=== PATIENT | male | born 1970 | race Caucasian/White ===

== ENCOUNTER 2021-01-01 15:09 | Inpatient (IN) | payer OTHER ==
--- NOTE | 2021-01-01 15:16 | ED ---
Chest Pain HPI - General Stated Complaint: Chest Pain Time Seen by Provider: 01/01/21 15:14 - History of Present Illness Initial Comments: Jay is a 50-year-old male who is brought to the ER today as a transfer from outside facility. Patient is a history of drug abuse, poorly controlled hypertension, he is currently incarcerated it has been so for the preps 3 months. Patient reports the last thing he had extensive stream chest pain, today he's been experiencing some dull achiness in his chest. Patient has frequent chest pain and is evaluated outside hospital frequently. Upon his evaluated today it was noted that he had new T-wave inversions which were not present on his EKG 1 month ago and decision was made to transfer him to our facility for evaluation by cardiology. Upon arrival patient reports he still has dull pressure in his chest but no sharp pains acute experiencing last night. Reports she's been taking his describe medications not certain what he stating that that is given to him in the half-way. Patient denies any illicit drug use since being jailed. - Related Data Home Medications Medication Instructions Recorded Confirmed Acetaminophen [Tylenol] 1,000 mg PO BID PRN 01/01/21 01/01/21 Albuterol Sulfate [Proair Hfa] 1 puff INHALATION RT-QID PRN 01/01/21 01/01/21 Amitriptyline HCl [Elavil] 50 mg PO HS 01/01/21 01/01/21 Cyclobenzaprine [Flexeril] 10 mg PO BID PRN 01/01/21 01/01/21 Ibuprofen [Motrin] 800 mg PO Q8H PRN 01/01/21 01/01/21 Loratadine 10 mg PO DAILY PRN 01/01/21 01/01/21 Losartan Potassium [Cozaar] 100 mg PO DAILY 01/01/21 01/01/21 Metoprolol Succinate [Toprol XL] 100 mg PO DAILY 01/01/21 01/01/21 Natural Fiber 1 dose PO BID PRN 01/01/21 01/01/21 Omeprazole [PriLOSEC] 20 mg PO DAILY 01/01/21 01/01/21 Sennosides/Docusate Sodium [Diana 1 tab PO DAILY PRN 01/01/21 01/01/21 Colace] cloNIDine HCL [Catapres] 0.1 mg PO BID 01/01/21 01/01/21 hydroCHLOROthiazide [Hydrodiuril] 25 mg PO DAILY 01/01/21 01/01/21 Allergies Allergy/AdvReac Type Severity Reaction Status Date / Time No Known Allergies Allergy Verified 01/01/21 16:33 Review of Systems ROS Statement: Those systems with pertinent positive or pertinent negative responses have been documented in the HPI. ROS Other: All systems not noted in ROS Statement are negative. EKG Findings - EKG Comments: EKG Findings:: EKG was obtained due to complaint of chest pain, EKG was obtained at 1614 rate is 76 rhythm is sinus leftward axis leftward ventricular hypertrophy, SD 142 QRS 94 QTC [address] elevations or depressions no evidence of acute ischemia or infarction. General Exam - General Exam Comments Initial Comments: Physical Exam GENERAL: Patient is well-developed and well-nourished. Patient is nontoxic and well-hydrated and is in no distress. HENT: Normocephalic, Atraumatic. EYES: PERRL, EOMI PULMONARY: Unlabored respirations. CARDIOVASCULAR: RRR Warm and well perfused extremities ABDOMEN: Non-distended SKIN: No rashes or bruising Multiple tattoos : Deferred NEUROLOGIC: Alert and oriented Normal speech Normal gait MUSCULOSKELETAL: Moving all extremities with no apparent injury Range of motion of legs limited by shackles PSYCHIATRIC: No SI/HI Course Vital Signs 01/01/21 01/01/21 15:16 17:00 Temperature 98.0 F 98.0 F Pulse Rate 80 80 Respiratory 18 18 Rate Blood Pressure 147/95 132/86 O2 Sat by Pulse 98 98 Oximetry Chest Pain MDM - MDM Patient care was discussed with transferring physician Previous labs and EKG were evaluated, repeat EKG obtained Repeat troponin was obtained She will be placed in observation for evaluation by cardiology patient agreeable patient care discussed with Dr. Dietrich who accepts Disposition Clinical Impression: Chest pain Disposition: ADMITTED IP TO THIS HOSP Condition: Stable Is patient prescribed a controlled substance at d/c from ED?: No
[2021-01-01] MEDS ORDERED: NITROGLYCERIN SL TABS 0.4 MG TAB SUBLINGUAL PRN (15:32)
[2021-01-01] MEDS ORDERED: LORATADINE 10 MG TAB PO PRN (17:28)
[2021-01-01] MEDS ORDERED: CYCLOBENZAPRINE 10 MG TAB PO PRN (17:28)
[2021-01-01] MEDS ORDERED: ACETAMINOPHEN TAB 500 MG TAB PO PRN (17:28)
[2021-01-01] MEDS ORDERED: ALBUTEROL HFA INHALER INHALATION PRN (17:28)
[2021-01-01] MEDS ORDERED: SENNOSIDES-DOCUSATE SODIUM 1 EACH TAB PO PRN (17:28)
--- NOTE | 2021-01-01 18:10 | HP ---
HISTORY AND PHYSICAL DATE OF SERVICE: 01/01/2021 CHIEF COMPLAINT: Chest pain. HISTORY OF PRESENT ILLNESS: This 50-year-old gentleman with a past medical history of hypertension, history of DJD, who is currently incarcerated, had chest pain on the left side of the chest which was pressure type of chest pain. The patient also has some pain and some numbness of the left side of the body. The patient went to [facility] and subsequently referred to [facility] for further evaluation and treatment. There is no history of fever, rigors. No headache, loss of consciousness, seizures at this time. PAST MEDICAL HISTORY: History of hypertension history of nicotine dependence. MEDICATIONS: Home medications are aspirin and nitroglycerin p.r.n. ALLERGIES: None. FAMILY HISTORY: History of multiple family members with coronary artery disease and including brother and sister and parents. SOCIAL HISTORY: History of smoking. REVIEW OF SYSTEMS: ENT No history of diminished hearing or vision. CARDIOVASCULAR As mentioned earlier. RESPIRATORY No cough, no hemoptysis. GI No nausea, vomiting, or diarrhea. No dysuria or hematuria. NERVOUS As mentioned earlier. ALLERGY/IMMUNOLOGY No asthma or hayfever. MUSCULOSKELETAL As mentioned earlier. HEMATOLOGY/ONCOLOGY Negative. ENDOCRINE No history of diabetes or hypothyroidism. CONSTITUTIONAL As mentioned earlier. DERMATOLOGY Negative. RHEUMATOLOGY Negative, PSYCHIATRY As mentioned earlier. PHYSICAL EXAM: Alert and oriented x3. Pulse 80, blood pressure 132/86, respiration 18, temperature 98 degrees, pulse ox 98% on room air. HEENT: Conjunctivae normal. Oral mucosa moist. NECK: No jugular venous distention. No lymph node enlargement. CARDIOVASCULAR: S1, S2, muffled. No S3, no S4, RESPIRATORY: Diminished breath sounds at the bases. No rhonchi, no crackles. ABDOMEN: Soft, nontender. LEGS: No edema, no swelling. NERVOUS SYSTEM: Higher functions mentioned earlier. Moves all four limbs. No focal motor or sensory deficits. LYMPHATICS: No lymph node in neck or axilla. SKIN: No rash. JOINTS: No active deforming arthropathy. LABS: Not available. ASSESSMENT: 1. Chest pain, possible unstable angina. 2. History of left-sided weakness, rule out acute transient ischemic attack. 3. Hypertension. 4. History of nicotine dependence. RECOMMENDATIONS: In this 50-year-old gentleman who presented with multiple complex medical issues, at this time I recommend to continue current medications. Rule out myocardial infarction. Baseline labs. Cardiology and neurology consultations. Prognosis guarded. Further recommendations to follow. MMODL / IJN: [id number] /
--- NOTE | 2021-01-01 18:13 | CT ---
EXAMINATION TYPE: CT brain wo con DATE OF EXAM: 01/01/2021 COMPARISON: None HISTORY: Pain, numbness and tingling to left arm. CT DLP: 1162.4 mGycm Automated exposure control for dose reduction was used. Images obtained of the brain without contrast. Ventricles have normal size. There is no mass effect nor midline shift. There is no evidence of intra cranial hemorrhage. Calvarium is intact. The skull base is intact. Sella turcica appears normal. IMPRESSION: Negative unenhanced head CT scan.
--- NOTE | 2021-01-01 19:24 | US ---
EXAMINATION TYPE: US carotid duplex BILAT DATE OF EXAM: 01/01/2021 COMPARISON: NONE CLINICAL HISTORY: tia?. EXAM MEASUREMENTS: RIGHT: Peak Systolic Velocity (PSV) cm/sec ----- Right CCA: 87.5 ----- Right ICA: 86.5 ----- Right ECA: 130.1 ICA/CCA ratio: 1.0 RIGHT: End Diastole cm/sec ----- Right CCA: 29.2 ----- Right ICA: 22.7 ----- Right ECA: 27.8 LEFT: Peak Systolic Velocity (PSV) cm/sec ----- Left CCA: 130.2 ----- Left ICA: 110.8 ----- Left ECA: 133.8 ICA/CCA ratio: 0.9 LEFT: End Diastole cm/sec ----- Left CCA: 33.3 ----- Left ICA: 26.8 ----- Left ECA: 26.6 VERTEBRALS (direction of flow): Right Vertebral: Antegrade Left Vertebral: Antegrade Rhythm: Normal No significant stenosis. IMPRESSION there is antegrade flow in the vertebral arteries. The images and measurements suggest close to 0% st enosis in both internal carotid arteries.: Criteria for Assigning % of Stenosis / Diameter reduction (Estimation based on the indirect measurements of the internal carotid artery velocities (ICA PSV). 1. Normal (no stenosis)=ICA PSV < 125 cm/s: ratio < 2.0: ICA EDV<40 cm/s. 2. Less than 50% stenosis=ICA PSV < 125 cm/s: ratio < 2.0: ICA EDV<40 cm/s. 3. 50 to 69% stenosis=ICA PSV of 125 to 230 cm/s: ration 2.0 ? 4.0: ICA EDV 40-100 cm/s. 4. Greater than 70% stenosis to near occlusion= ICA PSV > 230 cm/s: ratio > 4.0: ICA EDV > 100 cm/s. 5. Near occlusion= ICA PSV velocities may be low or undetectable: variable ratio and ICA EDV. 6. Total occlusion=unable to detect flow.
[2021-01-01 20:05] LABS: ALT 31 U/L (4-49); AST 26 U/L (17-59); African American GFR (CKD) >90 (>60 ml/min/1.73 sqM); Albumin 4.6 g/dL (3.5-5.0); Albumin/Globulin Ratio 2.1; Alkaline Phosphatase 53 U/L (38-126); Anion Gap 8 mmol/L; Blood Urea Nitrogen 20 mg/dL (9-20); Calcium 9.8 mg/dL (8.4-10.2); Carbon Dioxide 32 mmol/L (22-30); Chloride 100 mmol/L (98-107); Globulin 2.2 g/dL; Glucose 95 mg/dL (74-99); Non-African American GFR(CKD) >90 (>60 ml/min/1.73 sqM); Potassium 4.3 mmol/L (3.5-5.1); Sodium 140 mmol/L (137-145); Total Bilirubin 0.2 mg/dL (0.2-1.3); Total Protein 6.8 g/dL (6.3-8.2)
[2021-01-01 20:07] LABS: HCT 42.4 % (39.0-53.0); HGB 14.2 gm/dL (13.0-17.5); MCH 29.6 pg (25.0-35.0); MCHC 33.5 g/dL (31.0-37.0); MCV 88.5 fL (80.0-100.0); Mean Platelet Volume 8.9; Platelet Count 199 k/uL (150-450); RBC 4.79 m/uL (4.30-5.90); RDW 12.3 % (11.5-15.5)
[2021-01-01 21:13] LABS: Eosinophils # (M) 0.32 k/uL (0-0.7); Lymphocytes # (M) 2.48 k/uL (1.0-4.8); Metamyelocytes # (M) 0.08 k/uL (0); Metamyelocytes % 1 %; Monocytes # (M) 0.64 k/uL (0-1.0); Neutrophils # (M) 4.48 k/uL (1.3-7.7); Neutrophils % (M) 56 %; Nucleated Red Blood Cells 0 /100 WBC (0-0); Reactive Lymphocytes Present; Total Cells Counted 100
[2021-01-01] MEDS: cloNIDine HCL 0.1 MG TAB PO SCH (21:34)
[2021-01-01] MEDS: AMITRIPTYLINE HCL 25 MG TAB PO SCH (21:34)
[2021-01-02] MEDS ORDERED: PANTOPRAZOLE 40 MG TABLET PO SCH (07:30)
[2021-01-02] MEDS: hydroCHLOROthiazide 25 MG TAB PO SCH (08:45)
[2021-01-02] MEDS: LOSARTAN 50 MG TAB PO SCH (08:45)
[2021-01-02] MEDS: ASPIRIN 325 MG TAB PO SCH (08:45)
[2021-01-02] MEDS: PANTOPRAZOLE 40 MG TABLET PO SCH (08:45)
[2021-01-02] MEDS: cloNIDine HCL 0.1 MG TAB PO SCH ×2 (08:45→20:56)
[2021-01-02] MEDS: METOPROLOL SUCCINATE (ER) 100 MG TAB.ER.24H PO SCH (08:47)
[2021-01-02 12:26] LABS: Basophils # (A) 0.08 X 10*3/uL (0.00-0.10); Basophils % (A) 0.9 %; Eosinophils # (A) 0.36 X 10*3/uL (0.04-0.35); Eosinophils % (A) 4.1 %; HCT 40.2 % (39.6-50.0); HGB 13.4 g/dL (13.0-17.0); Lymphocytes # (A) 2.15 X 10*3/uL (0.90-5.00); Lymphocytes % (A) 24.5 %; MCH 29.8 pg (27.0-32.0); MCHC 33.3 g/dL (32.0-37.0); MCV 89.5 fL (80.0-97.0); Mean Platelet Volume 11.6 fL (9.5-12.2); Monocytes # (A) 0.85 X 10*3/uL (0.20-1.00); Monocytes % (A) 9.7 %; Neutrophils # (A) 5.31 X 10*3/uL (1.80-7.70); Neutrophils % (A) 60.5 %; Platelet Count 194 X 10*3/uL (140-440); RBC 4.49 X 10*6/uL (4.40-5.60); RDW 11.5 % (11.5-14.5); WBC 8.78 X 10*3/uL (4.50-10.00)
[2021-01-02 12:43] LABS: African American GFR (CKD) 100.6 (60.0-200.0); Anion Gap 9.1 mmol/L (4.00-12.00); Calcium 9.4 mg/dL (8.7-10.3); Carbon Dioxide 30.9 mmol/L (21.6-31.8); Chol/HDL Ratio 5.64; LDL Cholesterol,Calculated 121.6 mg/dL (0.0-131.0); Non-African American GFR(CKD) 86.8 (60.0-200.0); Potassium 3.9 mmol/L (3.5-5.5); VLDL Calculation 45.4 mg/dL (5.00-40.00)
--- NOTE | 2021-01-02 12:44 | P.CNNES ---
History of Present Illness Consult date: 01/02/21 Requesting physician: Zehra Dietrich Reason for Consult: generalized numbness. TIA? History of Present Illness: This is a 50-year-old gentleman with history of uncontrolled hypertension (for past 10 years), stroke at age of [age] years old where he had transient right sided weakness, cocaine use, medication noncompliance, tobacco use who was transferred from outside facility ([facility]) for further workup of chest pain. Patient is an incarcerated for the past the past 3 months and has been complaining of chest pain. Neurology is consulted for generalized numbness and concern for questionable transient ischemic attack. Upon talking to the patient he stated that he is having numbness and tingling over the left hand as well as left ankle and he has left numbness tingling over the left upper extremity going from hand old away to the left posterior neck region and all the symptoms has been going on for last 3 months. He denies of any focal weakness. He denies of any difficulty getting his words out, any the difficulty swallowing, any visual disturbance. As stated above his hypertension has been uncontrolled for 10 years and he stated that the he is on multiple medication and not sure why his blood pressure is uncontrolled. He does have lower back pain but denies any bladder or bowel incontinence. He smokes cocaine once a month. He smokes 1 pack a day for the last 20 years. He drinks 1 can of beer a day and that can is about 12 ounces. Regarding his old stroke about 21 years ago he stated that she was hospitalized for right-sided weakness and he had the workup the hospital was up [place] in [place]. He said that he supposed to be on aspirin daily but he is been noncompliant taking the medication until he's been incarcerated for the last 3 months he's been taking his medications. Some of the other patient home medication consist of clonidine, hydrochlorothiazide, losartan, metoprolol, Flexeril, Elavil. Some of the workup in the hospital consisted of: CT of the head on 01/01/2021 is reported as negative unenhanced head CT scan. Carotid duplex is reported as there is antegrade flow in the vertebral arteries. Images and measurements suggest close to 0% stenosis in both internal carotid arteries. EKG is reported as normal sinus rhythm. Moderate voltage criteria for left hollie tricle hypertrophy, may be normal variant. Borderline EKG. CBC with differential is unremarkable. Chemistry panel is also unremarkable. The sodium was 140, calcium is 9.8, creatinine is 0.92. Review of Systems Review of system: The 12 point system was reviewed and apparent positive and negative per HPI. Past Medical History Past Medical History: Hypertension History of Any Multi-Drug Resistant Organisms: None Reported Past Surgical History: Orthopedic Surgery Past Anesthesia/Blood Transfusion Reactions: No Reported Reaction Past Psychological History: No Psychological Hx Reported Smoking Status: Current every day smoker Past Alcohol Use History: None Reported Past Drug Use History: None Reported Medications and Allergies Home Medications Medication Instructions Recorded Confirmed Type Acetaminophen [Tylenol] 1,000 mg PO BID PRN 01/01/21 01/01/21 History Albuterol Sulfate [Proair Hfa] 1 puff INHALATION RT-QID PRN 01/01/21 01/01/21 History Amitriptyline HCl [Elavil] 50 mg PO HS 01/01/21 01/01/21 History Cyclobenzaprine [Flexeril] 10 mg PO BID PRN 01/01/21 01/01/21 History Ibuprofen [Motrin] 800 mg PO Q8H PRN 01/01/21 01/01/21 History Loratadine 10 mg PO DAILY PRN 01/01/21 01/01/21 History Losartan Potassium [Cozaar] 100 mg PO DAILY 01/01/21 01/01/21 History Metoprolol Succinate [Toprol XL] 100 mg PO DAILY 01/01/21 01/01/21 History Natural Fiber 1 dose PO BID PRN 01/01/21 01/01/21 History Omeprazole [PriLOSEC] 20 mg PO DAILY 01/01/21 01/01/21 History Sennosides/Docusate Sodium [Diana 1 tab PO DAILY PRN 01/01/21 01/01/21 History Colace] cloNIDine HCL [Catapres] 0.1 mg PO BID 01/01/21 01/01/21 History hydroCHLOROthiazide [Hydrodiuril] 25 mg PO DAILY 01/01/21 01/01/21 History Allergies Allergy/AdvReac Type Severity Reaction Status Date / Time No Known Allergies Allergy Verified 01/01/21 16:33 Physical Examination - Vital Signs Vital Signs: Vital Signs Temp Pulse Pulse Resp BP BP Pulse Ox 01/02/21 07:00 97.4 F L 75 18 135/83 96 06/06/21 02:00 97.9 F 72 16 116/76 98 01/02/21 01:21 18 01/01/21 20:24 98.0 F 75 18 156/93 98 01/01/21 20:00 75 18 01/01/21 19:59 76 18 152/82 98 01/01/21 17:00 98.0 F 80 18 132/86 98 01/01/21 15:16 98.0 F 80 18 147/95 98 Intake and Output 01/01/21 01/02/21 01/02/21 22:59 06:59 14:59 Intake Total 350 Balance 350 Intake: Oral 350 Other: Voiding Method Toilet Toilet # Voids 2 Weight 72.575 kg GENERAL: The patient is lying in bed and is not in acute distress. CHEST: The heart rate is regular rate rhythm. No murmurs to auscultation. No carotid bruit bilaterally. LUNG: Clear to auscultation bilaterally no wheezing noted throughout. Not labored breathing. ABDOMEN/GI: Bowel sounds present in all 4 quadrants. No tenderness to palpation throughout. NEUROLOGICAL: Higher mental function: The patient is awake, alert, oriented to self, place and time. Patient is following commands. No aphasia and no neglect. Cranial nerves: The pupils are round, equal and reactive to light and accommodation. Visual cardenas are full to confrontation throughout. Extraocular movement is intact no nystagmus is noted. Facial sensation is normal to touch throughout. The facial strength is normal throughout. Hearing is normal bilaterally to hand rub. Tongue is midline and moved [id number] without any difficulty. No dysarthria is noted. Shoulder shrug is normal bilaterally. Motor: Gait is deferred. The strength is left upper extremity proximally is 5- but with motivation is 5/5. Otherwise 5 over 5 throughout. Normal tone and bulk. Cerebellum: Normal finger to nose heel to thomason bilaterally. Sensation: Sensation is normal to touch throughout. Reflexes (right/left): 2+ throughout. Plantars are downgoing bilaterally. Results Williamson virus PCR was not detected - Laboratory Findings CBC and BMP: 01/02/21 07:02 01/02/21 07:02 Abnormal Lab Findings: Abnormal Labs 01/01/21 01/01/21 18:56 18:56 Metamyelocytes # (Man) 0.08 H Carbon Dioxide 32 H Assessment and Plan Assessment: * Chronic subjective numbness and tingling of left upper and lower extremity (for past 3 month). On examination it was normal to touch throughout. From CT head he has lacunar stroke on right thalamus that can cause paresthesia. Another possibility is cervical and lumbar radiculopathy/plexopathy (chronic neck and lower back pain). * Hx of stroke at age 30 (with transient right sided weakness). He had work-up at outside facility and no compliant with taking medication. On CT head I felt patient had lacunar infarcts on both subcortical/basal ganglia and likely small vessel disease (from uncontrolled HTN, tobacco use, cocaine use) * Uncontrolled Hypertension for the past at least 10 years * Acute Chest pain * Cocaine use (smokes once a month) * Tobacco use 1PPD for years * Medication noncompliance Plan: * CT of the head on 01/01/2021 is reported as negative unenhanced head CT scan. Upon reviewing the CT of the head I felt the patient had lacunar ischemic stroke on both bilateral basal ganglia on the right side of felt was on the border of the right thalamus region or close to it. While in the left felt was mostly on the outer external capsule. * Carotid duplex is reported as there is antegrade flow in the vertebral art eries. Images and measurements suggest close to 0% stenosis in both internal carotid arteries. * 2-D echo, lipid panel are ordered and are pending. * Patient was started on aspirin 325 mg daily by the primary team. I started the patient on Lipitor 20mg qhs. * MRI of the brain is not warranted at this time since his symptoms has been going on for the last 3 months and this can be done as an outpatient. Also the exam is normal to touch bilaterally. * Because the patient has been having chronic neck pain as well as lower back pain I recommend the imaging of the neck as well as the back can consider MRI or even CT as an outpatient. * I ordered vitamin B12, folate, vitamin B6 levels and hemoglobin A1c. * Placed the patient on Gabapentin 100mg 1 tab tid which will help with paresthesia and on Thiamine 100mg daily for alcohol use. * I notified the patient's the importance of having his blood pressure controlled, counseled on tobacco cessation as well as cocaine cessation and the importance of medication compliance. The patient was notified with uncontrolled hypertension as well as tobacco and cocaine use increases his stroke risk factor. * Cardiology is consulted. * We'll defer the rest of the medical management to the primary team. * I recommend for the patient to follow-up with a neurologist as an outpatient within 1-2 weeks as well as recommend EMG with nerve conduction study as an outpatient. The plan is discussed with the patient and his nurse. Thank you for the consultation. Nigel Walls M.D. Neuro-hospitalist Time with Patient: Greater than 30
[2021-01-02] MEDS: GABAPENTIN 100 MG CAP PO SCH ×3 (13:01→20:56)
[2021-01-02] MEDS ORDERED: AMINOPHYLLINE 500 MG/20 ML VIAL IV PRN (14:43)
[2021-01-02] MEDS ORDERED: CAFFEINE CITRATE 60 MG/3 ML VIAL IV PRN (14:43)
[2021-01-02] MEDS ORDERED: REGADENOSON 0.4 MG/5 ML SYRINGE IV PRN (14:43)
--- NOTE | 2021-01-02 14:43 | P.CRDCN ---
History of Present Illness Consult date: 01/02/21 Requesting physician: Zehra Dietirch Reason for Consult (text): chest pain Chief complaint: recurrent chest pain History of present illness: This is a 50-year-old gentleman with history of hypertension, family history of CAD, current every day smoker of one pack per day, possible history of drug abuse although patient denies. She does not follow with a tube carrier. Patient is currently incarcerated. He presented initially to [facility] where he spent a few times in the past with complaints of chest discomfort. He was transferred here for further evaluation and treatment due to EKG changes compared to a month ago. He's been complaining of intermittent chest discomfort. Apparently yesterday the pain was more severe than usual lessening of the lowers. He at times has pain down into his left arm and leg and was complaining of some numbness in his left arm and leg yesterday. He's also been noticing he's feeling more short of breath than usual. EKG on presentation are ER showed sinus rhythm with ST-T wave abnormalities noted in leads 3 and aVF not seen an EKG from November of this year done at [place]. Computed tomography scan of the brain was done due to the numbness on his left side which came back to be negative. Carotid Doppler study showed antegrade flow in bilateral vertebral arteries, images and measurement suggests close to 0% stenosis bilaterally. Laboratory values show potassium 4.3, BUN 20, creatinine 0.92 and troponins negative 3. The pressure has been elevated at times better this morning. Afebrile. Current medications include metoprolol succinate 100 mg by mouth daily, losartan 100 mg by mouth daily, hydrochlorothiazide 25 mg by mouth daily, clonidine 0.1 mg by mouth twice a day, Elavil, Flexeril, Prilosec and Motrin 800 mg by mouth every 8 hours. At the time of my examination the patient is resting comfortably in bed. He has no current complaints. He has noted that he has had some chest discomfort through the night but nothing this morning. He notices he is feeling more short of breath at times. He denies any palpitations, dizziness or lightheadedness. He's had no edema, orthopnea or PND. He's had no nausea or vomiting. Past Medical History Past Medical History: Hypertension History of Any Multi-Drug Resistant Organisms: None Reported Past Surgical History: Orthopedic Surgery Past Anesthesia/Blood Transfusion Reactions: No Reported Reaction Past Psychological History: No Psychological Hx Reported Smoking Status: Current every day smoker Past Alcohol Use History: None Reported Past Drug Use History: None Reported Medications and Allergies Home Medications Medication Instructions Recorded Confirmed Type Acetaminophen [Tylenol] 1,000 mg PO BID PRN 01/01/21 01/01/21 History Albuterol Sulfate [Proair Hfa] 1 puff INHALATION RT-QID PRN 01/01/21 01/01/21 History Amitriptyline HCl [Elavil] 50 mg PO HS 01/01/21 01/01/21 History Cyclobenzaprine [Flexeril] 10 mg PO BID PRN 01/01/21 01/01/21 History Ibuprofen [Motrin] 800 mg PO Q8H PRN 01/01/21 01/01/21 History Loratadine 10 mg PO DAILY PRN 01/01/21 01/01/21 History Losartan Potassium [Cozaar] 100 mg PO DAILY 01/01/21 01/01/21 History Metoprolol Succinate [Toprol XL] 100 mg PO DAILY 01/01/21 01/01/21 History Natural Fiber 1 dose PO BID PRN 01/01/21 01/01/21 History Omeprazole [PriLOSEC] 20 mg PO DAILY 01/01/21 01/01/21 History Sennosides/Docusate Sodium [Diana 1 tab PO DAILY PRN 01/01/21 01/01/21 History Colace] cloNIDine HCL [Catapres] 0.1 mg PO BID 01/01/21 01/01/21 History hydroCHLOROthiazide [Hydrodiuril] 25 mg PO DAILY 01/01/21 01/01/21 History Allergies Allergy/AdvReac Type Severity Reaction Status Date / Time No Known Allergies Allergy Verified 01/01/21 16:33 Physical Exam Vitals: Vital Signs Temp Pulse Pulse Resp BP BP Pulse Ox 01/02/21 07:00 97.4 F L 75 18 135/83 96 01/02/21 02:00 97.9 F 72 16 116/76 98 01/02/21 01:21 18 01/01/21 20:24 98.0 F 75 18 156/93 98 01/01/21 20:00 75 18 01/01/21 19:59 76 18 152/82 98 06/05/21 17:00 98.0 F 80 18 132/86 98 01/01/21 15:16 98.0 F 80 18 147/95 98 Intake and Output 01/01/21 01/02/21 01/02/21 22:59 06:59 14:59 Intake Total 350 Balance 350 Intake: Oral 350 Other: Voiding Method Toilet Toilet # Voids 2 Weight 72.575 kg PHYSICAL EXAMINATION: This is a 50-year-old male in no apparent distress at the time of my examination. VITAL SIGNS: Blood pressure 135/83, heart rate 75, respirations 18, temp 97.4F. Patient is 96 % on room air. HEENT: Head is atraumatic, normocephalic. Pupils are equal, round. Sclerae anicteric. Conjunctivae are clear. Mucous membranes of the mouth are moist. Neck is supple. There is no elevated jugular venous pressure. No carotid bruit is heard. CHEST EXAMINATION: Clear to auscultation bilaterally. No wheezes rales or rhonchi. Respirations even and nonlabored. HEART EXAMINATION: Heart regular, positive S1 and S2. No S3. No S4. No clicks, rubs or murmurs. ABDOMEN: Soft, nontender. Bowel sounds are heard. No organomegaly noted. EXTREMITIES: 2+ peripheral pulses with no evidence of peripheral edema and no calf tenderness noted. NEUROLOGIC EXAMINATION: Patient is awake, alert and oriented x3. Results 01/02/21 07:02 01/02/21 07:02 Cardiac Enzymes 01/01/21 01/01/21 01/01/21 Range/Units 15:56 18:56 18:56 AST 26 (17-59) U/L Troponin I <0.012 <0.012 (0.000-0.034) ng/mL 01/01/21 Range/Units 21:43 AST (17-59) U/L Troponin I <0.012 (0.000-0.034) ng/mL CBC 01/01/21 Range/Units 18:56 WBC 8.0 (3.8-10.6) k/uL RBC 4.79 (4.30-5.90) m/uL Hgb 14.2 (13.0-17.5) gm/dL Hct 42.4 (39.0-53.0) % Plt Count 199 (150-450) k/uL Comprehensive Metabolic Panel 01/01/21 Range/Units 18:56 Sodium 140 (137-145) mmol/L Potassium 4.3 (3.5-5.1) mmol/L Chloride 100 (98-107) mmol/L Carbon Dioxide 32 H (22-30) mmol/L BUN 20 (9-20) mg/dL Creatinine 0.92 (0.66-1.25) mg/dL Glucose 95 (74-99) mg/dL Calcium 9.8 (8.4-10.2) mg/dL AST 26 (17-59) U/L ALT 31 (4-49) U/L Alkaline Phosphatase 53 (38-126) U/L Total Protein 6.8 (6.3-8.2) g/dL Albumin 4.6 (3.5-5.0) g/dL Current Medications Generic Name Dose Route Start Last Admin Trade Name Freq PRN Reason Stop Dose Admin Acetaminophen 1,000 mg 01/01/21 17:28 Acetaminophen Tab 500 Mg Tab PO BID PRN Pain Albuterol Sulfate 1 puff 01/01/21 17:28 Albuterol Hfa Inhaler INHALATION RT-QID PRN Shortness Of Breath Amitriptyline HCl 50 mg 01/01/21 21:00 01/01/21 21:34 Amitriptyline Hcl 25 Mg Tab PO 50 mg HS ALFREDO Administration Aspirin 325 mg 01/02/21 09:00 01/02/21 08:45 Aspirin 325 Mg Tab PO 325 mg DAILY ALFREDO Administration Clonidine 0.1 mg 01/01/21 21:00 01/02/21 08:45 Clonidine Hcl 0.1 Mg Tab PO 0.1 mg BID ALFREDO Administration Cyclobenzaprine HCl 10 mg 01/01/21 17:28 Cyclobenzaprine 10 Mg Tab PO BID PRN Pain Hydrochlorothiazide 25 mg 01/02/21 09:00 01/02/21 08:45 Hydrochlorothiazide 25 Mg Tab PO 25 mg DAILY ALFREDO Administration Loratadine 10 mg 01/01/21 17:28 Loratadine 10 Mg Tab PO DAILY PRN Allergy Symptoms Losartan Potassium 100 mg 01/02/21 09:00 01/02/21 08:45 Losartan 50 Mg Tab PO 100 mg DAILY ALFREDO Administration Metoprolol Succinate 100 mg 01/02/21 09:00 01/02/21 08:47 Metoprolol Succinate (Er) 100 Mg Tab.Er.24h PO 100 mg DAILY ALFREDO Administration Nitroglycerin 0.4 mg 01/01/21 15:32 Nitroglycerin Sl Tabs 0.4 Mg Tab SUBLINGUAL Q5M PRN Chest Pain Pantoprazole Sodium 40 mg 01/02/21 07:30 01/02/21 08:45 Pantoprazole 40 Mg Tablet PO 40 mg DAILY@0730 ALFREDO Administration Senna/Docusate Sodium 1 each 01/01/21 17:28 Sennosides-Docusate Sodium 1 Each Tab PO DAILY PRN Constipation Intake and Output 01/01/21 01/02/21 01/02/21 22:59 06:59 14:59 Intake Total 350 Balance 350 Intake: Oral 350 Other: Voiding Method Toilet Toilet # Voids 2 Weight 72.575 kg 01/01/21 18:56 01/01/21 18:56 Assessment and Plan Assessment: #1 symptoms of recurrent chest discomfort, not exertional, worsening in severity and duration. An acute coronary event has been ruled out, troponins are neg ative 3. New ST-T wave abnormalities noted on EKG. #2 hypertension #3 nicotine dependence #4 shortness of breath #5 questionable history of drug abuse Plan: From cardiology's perspective medications reviewed will continue the same. Avoid NSAIDs due to poorly controlled hypertension. Will obtain a 2-D echo with Doppler study to assess cardiac structure and function. We'll also schedule the patient undergo stress test in the morning to rule out underlying ischemia. Further recommendations to follow. LEAF BLENDER note has been reviewed, I agree with a documented findings and plan of care. Patient was seen and examined.
--- NOTE | 2021-01-02 20:09 | PN ---
PROGRESS NOTE DATE OF SERVICE: 01/02/2021. This 50-year-old gentleman admitted with chest pain also complaining of numbness of the left side. Cardiology and neurology evaluation in progress. No chest pain. No palpitations. No fever. A stress test is being planned at this time. CT scan of the brain showed some lacunar infarct. PHYSICAL EXAMINATION: Alert and oriented x3. The pulse is 77. Blood pressure 117/77, respiration 18, temperature 97.4, pulse ox 98% on room air. HEENT: Conjunctivae normal. NECK: No JVD. CARDIOVASCULAR: S1, S2 muffled. RESPIRATORY SYSTEM: Breath sounds diminished at the bases. No rhonchi. No crackles. ABDOMEN: Soft, nontender. LEGS are no edema. No swelling. Nervous system: No focal deficits. LAB: CBC within normal limits and BMP noted. Triglycerides 203 and LDL is 121. ASSESSMENT: 1. Chest pain, possible unstable angina. 2. Left-sided numbness, possible transient ischemic attack. 3. Hypertension. 4. Hyperlipidemia. 5. History of nicotine dependence. RECOMMENDATIONS AND DISCUSSION: Recommend to continue current medications, continue symptomatic treatment. Continue with current medications. Antiplatelet agents. Lipitor has been initiated. Closely follow with Cardiology and Neurology. Guarded prognosis. Stress test tomorrow. Further recommendations to follow. MMODL / IJN: [id number] /
[2021-01-02] MEDS: AMITRIPTYLINE HCL 25 MG TAB PO SCH (20:56)
[2021-01-02] MEDS ORDERED: ATORVASTATIN 20 MG TAB PO SCH (21:00)
[2021-01-02 21:34] VITALS: RESP 16
[2021-01-03] MEDS: METOPROLOL SUCCINATE (ER) 100 MG TAB.ER.24H PO SCH (08:27)
[2021-01-03] MEDS: GABAPENTIN 100 MG CAP PO SCH (08:28)
[2021-01-03] MEDS: PANTOPRAZOLE 40 MG TABLET PO SCH (08:28)
[2021-01-03] MEDS: LOSARTAN 50 MG TAB PO SCH (08:28)
[2021-01-03] MEDS: hydroCHLOROthiazide 25 MG TAB PO SCH (08:28)
[2021-01-03] MEDS: cloNIDine HCL 0.1 MG TAB PO SCH (08:28)
[2021-01-03] MEDS: ASPIRIN 325 MG TAB PO SCH (08:28)
[2021-01-03] MEDS ORDERED: THIAMINE 100 MG TAB PO SCH (09:00)
--- NOTE | 2021-01-03 11:43 | ECHOF ---
Referral Reason:chest pain, abnormal EKG MEASUREMENTS -------- HEIGHT: 170.2 cm WEIGHT: 72.6 kg BP: RVIDd: 2.7 cm (< 3.3) IVSd: 1.1 cm (0.6 - 1.1) LVIDd: 4.9 cm (3.9 - 5.3) LVPWd: 1.6 cm (0.6 - 1.1) IVSs: 1.6 cm LVIDs: 3.6 cm LVPWs: 1.7 cm LA Diam: 3.1 cm (2.7 - 3.8) LAESV Index (A-L): 26.51 ml/m Ao Diam: 2.9 cm (2.0 - 3.7) AV Cusp: 2.0 cm (1.5 - 2.6) MV EXCURSION: 17.354 mm (> 18.000) MV EF SLOPE: 68 mm/s (70 - 150) EPSS: 0.6 cm MV E Edouard: 0.51 m/s MV DecT: 294 ms MV A Edouard: 0.79 m/s MV E/A Ratio: 0.64 RAP: 5.00 mmHg RVSP: 15.66 mmHg FINDINGS -------- Sinus rhythm. This was a technically good study. LV size, wall thickness and systolic function are normal, with an EF greater than 55%. The left hollie tricular size is normal. The right ventricle is normal in size. Normal LA size by volume 22+/-6 ml/m2. The right atrial size is normal. There is mild aortic valve sclerosis. There is mild aortic regurgitation. Mild mitral regurgitation is present. Mild tricuspid regurgitation present. Right ventricular systolic pressure is normal at < 35 mmHg. There is no pulmonic regurgitation present. The aortic root size is normal. There is no pericardial effusion. CONCLUSIONS -------- 1. LV size, wall thickness and systolic function are normal, with an EF greater than 55%. 2. The left ventricular size is normal. 3. The right ventricle is normal in size. 4. Normal LA size by volume 22+/-6 ml/m2. 5. The right atrial size is normal. 6. There is mild aortic valve sclerosis. 7. There is mild aortic regurgitation. 8. Mild mitral regurgitation is present. 9. Mild tricuspid regurgitation present. 10. The aortic root size is normal. 11. There is no pericardial effusion. PRODUCT ENGINEERING MANAGER: Florence Bethea RDCS
--- NOTE | 2021-01-03 11:45 | P.PN ---
Subjective This is a pleasant 50-year-old male past medical history significant for hypertension, history of CVA, chronic nicotine dependence and family history of coronary artery disease. He is seen and examined in no acute distress. He is currently incarcerated with police patrol lieutenant at the bedside. He states he has intermittent episodes of ongoing chest heaviness not associated with activity or exertion. Blood pressure 122/82 heart rate 87 afebrile maintaining oxygen saturation on room air. Currently maintained on aspirin 325 mg daily, at orvastatin 20 mg at bedtime, clonidine 0.1 mg twice a day, hydrochlorothiazide 25 mg daily, losartan 100 mg daily and Toprol 100 mg daily. GENERAL: Well-appearing, well-nourished and in no acute distress. NECK: Supple without JVD or thyromegaly. LUNGS: Breath sounds clear to auscultation bilaterally. Respiration equal and unlabored. No wheezes, rales or rhonchi. HEART: Regular rate and rhythm without murmurs, rubs or gallops. S1 and S2 heard. EXTREMITIES: Normal range of motion, no edema. No clubbing or cyanosis. Peripheral pulses intact. ASSESSMENT Chest pain Hypertension Chronic nicotine dependence Questionable history of drug abuse PLAN Proceed with Lexiscan stress test as previously ordered. If evidence of reversibility is noted we will consider coronary angiography. Echocardiogram has been obtained and will be reviewed. If stress test is normal he can be discharged from a cardiac perspective. Tobacco and illicit drug cessation recommended. Nurse Practitioner note has been reviewed, I agree with a documented findings and plan of care. Patient was seen and examined. Objective - Vital Signs Vital signs: Vital Signs Temp 98.0 F 01/03/21 07:00 Pulse 87 01/03/21 08:00 Resp 16 01/03/21 08:00 BP 122/82 01/03/21 07:00 Pulse Ox 98 01/03/21 07:00 Intake & Output 01/02/21 01/03/21 01/03/21 18:59 06:59 18:59 Intake Total 250 Balance 250 Intake: Oral 250 Other: Voiding Method Toilet Toilet # Voids 2 3 3 - Labs CBC & Chem 7: 01/02/21 07:02 01/02/21 07:02 Labs: Abnormal Lab Results - Last 24 Hours (Table) 01/02/21 01/02/21 Range/Units 07:02 07:02 Eosinophils # 0.36 H (0.04-0.35) X 10*3/uL BUN/Creatinine Ratio 23.00 H (12.00-20.00) Ratio Triglycerides 227.0 H (0.0-149.0) mg/dL Cholesterol 203 H (0-200) mg/dL VLDL Cholesterol, Calc 45.40 H (5.00-40.00) mg/dL HDL Cholesterol 36.0 L (40.0-60.0) mg/dL
--- NOTE | 2021-01-03 12:49 | EST ---
EXERCISE STRESS INDICATION: Chest pain. AGE: 50 SEX: M HT: @@ WT: @@ PROTOCOL: @@ STAGE: @@ DURATION OF EXERCISE: @@ HEART RATE REST: @@ BLOOD PRESSURE REST: @@ MAXIMUM HEART RATE ACHIEVED: @@ MAXIMUM BLOOD PRESSURE: @@ 85% MPHR: @@ 100% MPHR: @@ METS: @@ STRESS DATA: Heart rate 95. Pressure is 124/80 mmHg. Baseline EKG showed sinus mechanism. 0.4 mg of Lexiscan given over 15 seconds per protocol. Max heart rate was 121 beats per minute. Maximum pressure was 131/85 mmHg. Clinically, the patient did not have any symptoms and the EKG did not show any significant ST or T-wave abnormalities concerning for ischemia. CONCLUSION: 1. Nondiagnostic electrocardiogram stress testing in response to Lexiscan. 2. Please follow up on the Cardiolite portion on a separate report from Radiology Department. MMODL / IJN: [id number] /
[2021-01-03 12:56] LABS: Folate, Serum 16.5 ng/mL
--- NOTE | 2021-01-03 12:59 | P.PN ---
Subjective Progress Note Date: 01/03/21 Patient was seen at bedside and he said the numbness and tingling over the left side is improving after Gabapentin 100mg 1 tab tid and would like to go up on the dose. He denies any neurological symptoms. Today he had a stress test. Objective - Vital Signs Vital signs: Vital Signs Temp 98.0 F 01/03/21 07:00 Pulse 87 01/03/21 08:00 Resp 16 01/03/21 08:00 BP 122/82 01/03/21 07:00 Pulse Ox 98 01/03/21 07:00 Intake & Output 01/02/21 01/03/21 01/03/21 18:59 06:59 18:59 Intake Total 250 Balance 250 Intake: Oral 250 Other: Voiding Method Toilet Toilet # Voids 2 3 3 - Exam GENERAL: The patient is lying in bed and is not in acute distress. NEUROLOGICAL: Higher mental function: The patient is awake, alert, oriented to self, place and time. Patient is following commands. No aphasia and no neglect. Cranial nerves: The pupils are round, equal and reactive to light and accommodation. Visual cardenas are full to confrontation throughout. Extraocular movement is intact no nystagmus is noted. Facial sensation is normal to touch throughout. The facial strength is normal throughout. Hearing is normal bilaterally to hand rub. Tongue is midline and moved [id number] without any difficulty. No dysarthria is noted. Shoulder shrug is normal bilaterally. Motor: Gait is deferred. The strength is left upper extremity proximally is 5- but with motivation is 5/5. Otherwise 5 over 5 throughout. Normal tone and bulk. Cerebellum: Normal finger to nose heel to thomason bilaterally. Sensation: Sensation is normal to touch throughout. Reflexes (right/left): 2+ throughout. Plantars are downgoing bilaterally. - Labs CBC & Chem 7: 01/02/21 07:02 01/02/21 07:02 Labs: Abnormal Lab Results - Last 24 Hours (Table) 01/02/21 01/02/21 Range/Units 07:02 07:02 Eosinophils # 0.36 H (0.04-0.35) X 10*3/uL BUN/Creatinine Ratio 23.00 H (12.00-20.00) Ratio Triglycerides 227.0 H (0.0-149.0) mg/dL Cholesterol 203 H (0-200) mg/dL VLDL Cholesterol, Calc 45.40 H (5.00-40.00) mg/dL HDL Cholesterol 36.0 L (40.0-60.0) mg/dL Assessment and Plan Assessment: * Chronic subjective numbness and tingling of left upper and lower extremity (for past 3 month). On examination it was normal to touch throughout. From CT head he has lacunar stroke on right thalamus that can cause paresthesia. Another possibility is cervical and lumbar radiculopathy/plexopathy (chronic neck and lower back pain). * Hx of stroke at age 30 (with transient right sided weakness). He had work-up at outside facility and no compliant with taking medication. On CT head I felt patient had lacunar infarcts on both subcortical/basal ganglia and likely small vessel disease (from uncontrolled HTN, tobacco use, cocaine use) * Uncontrolled Hypertension for the past at least 10 years * Acute Chest pain * Cocaine use (smokes once a month) * Tobacco use 1PPD for years * Medication noncompliance Plan: * CT of the head on 01/01/2021 is reported as negative unenhanced head CT scan. Upon reviewing the CT of the head I felt the patient had lacunar ischemic stroke on both bilateral basal ganglia on the right side of felt was on the border of the right thalamus region or close to it. While in the left felt was mostly on the outer external capsule. * Carotid duplex is reported as there is antegrade flow in the vertebral arteries. Images and measurements suggest close to 0% stenosis in both internal carotid arteries. * Lipid panel: Triglyceride of 227, cholesterol 203, LDL of 121, HDL 36. * 2-D echo is pending. * Patient was started on aspirin 325 mg daily by the primary team. Continue Lipitor 20mg qhs. * MRI of the brain is not warranted at this time since his symptoms has been going on for the last 3 months and this can be done as an outpatient. Also the exam is normal to touch bilaterally. * Because the patient has been having chronic neck pain as well as lower back pa in I recommend the imaging of the neck as well as the back can consider MRI or even CT as an outpatient. * vitamin B12: 390 (low normal), so started on Vitamin B12 1000mcg daily. Serum Folate level: 16.5: Normal. * Pending vitamin B6 levels and hemoglobin A1c. * Feels there is benefit of Gabapentin 100mg 1 tab tid but not lasting long enough and wants higher dose, so will go up to 300mg 1 tab tid which will help with paresthesia. * Continue Thiamine 100mg daily for alcohol use. * I notified the patient's the importance of having his blood pressure controlled, counseled on tobacco cessation as well as cocaine cessation and the importance of medication compliance. The patient was notified with un controlled hypertension as well as tobacco and cocaine use increases his stroke risk factor. * Cardiology is consulted. * We'll defer the rest of the medical management to the primary team. * I recommend for the patient to follow-up with a neurologist as an outpatient within 1-2 weeks as well as recommend EMG with nerve conduction study as an outpatient. The plan is discussed with the patient and his nurse. Will follow-up with the patient sporadically. Nigel Walls M.D. Neuro-hospitalist Time with Patient: Less than 30
[2021-01-03] MEDS ORDERED: CYANOCOBALAMIN 500 MCG TAB PO SCH (13:00)
--- NOTE | 2021-01-03 13:16 | NM ---
EXAMINATION TYPE: NM stress lexiscan cardiolite DATE OF EXAM: 01/03/2021 COMPARISON: NONE HISTORY: 50 year-old male chest pain TECHNIQUE: After the intravenous administration of 9.3 mCi Tc 99m Sestamibi - Cardiolite resting SPE CT images acquired 45 minutes post injection. The patient received 0.4mg Lexiscan, 24.4 mCi Tc 99m Sestamibi - Stress images obtained [address] injection FINDINGS: Review of stress and rest SPECT images demonstrates a small defect along the mid inferoseptal wall. N o suspicious reversibility is identified. Gated analysis shows normal wall motion with an estimated l eft ventricular ejection fraction of 40 %. TID is normal at 1.10. IMPRESSION: 1. Estimated LVEF appears slightly diminished at 40% on this study. Clinically correlate. 2. Small fixed defect along the mid inferoseptal wall. Correlate for any history of prior infarct. 3. No suspicious reversibility identified.
[2021-01-03 14:25] LABS: Hemoglobin A1C 5.4 % (4.0-6.0)
[2021-01-03 15:30] VITALS: BP 101/69; PULSE 95; TEMP 98.2
[2021-01-03] MEDS ORDERED: GABAPENTIN 300 MG CAP PO SCH (16:00)
--- NOTE | 2021-01-03 22:42 | DS ---
DISCHARGE SUMMARY DATE OF SERVICE: 01/03/2021 FINAL DIAGNOSES: 1. Chest pain, possibly musculoskeletal, negative stress test. 2. Left-sided numbness, possible transient ischemic attack. 3. Hypertension. 4. Hyperlipidemia. 5. History of nicotine dependence. DISCHARGE DISPOSITION: The patient discharged in stable condition with guarded prognosis. HISTORY OF PRESENT ILLNESS: This 50-year-old gentleman with past medical history of multiple medical problems being referred from [facility]. He was having chest pain. Myocardial infarction ruled out. The patient had a stress test which was negative. Patient also evaluated by Neurology. Patient improved significantly. The workup was basically negative and the patient will be discharged in stable condition with guarded prognosis. DISCHARGE ADVICE AND MEDICATIONS: 1. Diet is cardiac. 2. Activity limited until followup. 3. Follow up with primary physician in 2-3 days. 4. Follow up with Cardiology and Neurology as recommended. 5. Clonidine 0.1 p.o. b.i.d. 6. Cozaar 100 mg p.o. daily. 7. Elavil 50 mg q.h.s. 8. Flexeril 10 mg b.i.d. p.r.n. 9. HydroDIURIL 10 mg p.o. daily. 10.Loratadine p.r.n. 11.Prilosec 20 mg daily. 12.ProAir p.r.n. 13.Toprol-XL 100 mg p.o. daily. 14.Lipitor 20 mg q.h.s. 15.Neurontin 300 mg p.o. t.i.d. 16.Nitrostat 0.4 mg sublingual p.r.n. 17.Thiamine 100 mg p.o. daily. Once again, the patient will be discharged in stable condition with guarded prognosis. MMODL / IJN: [id number] /
[2021-01-04] MEDS ORDERED: ASPIRIN 81 MG PO SCH (09:00)
== END 2021-01-03 17:37 | DRG 313 ==
LOC: EDBD → EC 15:09 → 6NMEDSUR 15:32 → OBSVTOIN 01-03 10:45 → MERGE 01-03 10:45
PROVIDERS: ADMIT Hospitalist; ATTEND Hospitalist
DX: R07.9 Chest pain, unspecified (principal); G45.9 Transient cerebral ischemic attack, unspecified; I69.351 Hemiplegia and hemiparesis following cerebral infarction affecting right dominant side; I11.9 Hypertensive heart disease without heart failure; F17.210 Nicotine dependence, cigarettes, uncomplicated; Z91.19 Patient's noncompliance with other medical treatment and regimen; Z91.14 Patient's other noncompliance with medication regimen; Z82.49 Family history of ischemic heart disease and other diseases of the circulatory system; Z79.899 Other long term (current) drug therapy; Z79.82 Long term (current) use of aspirin; Z20.822 Contact with and (suspected) exposure to COVID-19; F14.90 Cocaine use, unspecified, uncomplicated; M54.5 Low back pain; M19.90 Unspecified osteoarthritis, unspecified site; E78.5 Hyperlipidemia, unspecified
CPT/HCPCS: 36415; 70450; 78452; 80048; 80053; 80061; 82607; 82746; 83036; 84207; 84484; 85025; 87635; 93005; 93017; 93306; 93880; 99285